=== PATIENT | male | born 1975 | race Two or more races ===

== ENCOUNTER 2025-02-23 17:22 | Emergency (ER) | payer MEDICAID ==
[~2025-02-23] VITALS: Ht 165.1 cm; Wt 65.8 kg
[2025-02-23 17:32] VITALS: BP 140/67; TEMP 98.3
[2025-02-23] MEDS ORDERED: ACETAMINOPHEN ES 500 MG TABLET ONE (17:50)
[2025-02-23] MEDS ORDERED: IBUPROFEN 400 MG TABLET ONE (17:50)
[2025-02-23] MEDS: ACETAMINOPHEN ES 500 MG TABLET PO ONE (17:56)
[2025-02-23] MEDS: IBUPROFEN 400 MG TABLET PO ONE (17:56)
[2025-02-23] MEDS ORDERED: LIDO30AD10 TP (18:23)
[2025-02-23] MEDS ORDERED: IBUP-1490 PO (18:23)
[2025-02-23 20:30] VITALS: O2SAT 97
== END 2025-02-23 20:31 | disposition home or self-care (01) ==
LOC: ER 17:27
DX: M79.601 Pain in right arm (principal); R06.00 Dyspnea, unspecified; R07.9 Chest pain, unspecified
CPT/HCPCS: 71045-TC; 73060-TC